=== PATIENT | female | born 1965 | race Caucasian/White ===

== ENCOUNTER → 2018-05-27 | Day surgery (SDC) | payer MEDICARE ==
--- NOTE | 2018-05-26 18:11 | Diagnostic Imaging Report ---
PROCEDURE: X-RAY CHEST, TWO VIEWS COMPARISON: Patients [facility], DX, CHEST 2 VIEWS, 04/05/2017, 16:24. INDICATIONS: pre-operative chest/foot surgery FINDINGS: LUNGS: Well-inflated. No consolidations or edema.Vascular markings are normal. PLEURA: No effusions or pneumothorax. Central eventration of the right diaphragm is stable. HEART \T\ MEDIASTINUM: The heart is within normal size-limits. BONES \T\ SOFT TISSUES: The bones are mildly demineralized. No focal osseous lesions. No acute findings. CONCLUSION: Stable chest. No active disease. Dictated by: Shae Timmons M.D. on 05/26/2018 at 18:16 Electronically approved by: Shae Timmons M.D. on 05/26/2018 at 18:16
[2018-05-26 18:15] LABS: BASOPHILS % 0.2 % (0.0-1.0); EOSINOPHILS # (AUTO) 0.2 (0.0-0.4); EOSINOPHILS % 1.4 % (0.0-6.0); HEMATOCRIT 36.8 % (34.2-44.1); LYMPHOCYTES # (AUTO) 1.7 (1.0-3.2); LYMPHOCYTES % 12.4 % (18.0-39.1); MEAN CORPUSCULAR HEMOGLOBIN 30.5 pg (28-32); MEAN CORPUSCULAR HGB CONC 32.6 g/dL (31-35); MEAN CORPUSCULAR VOLUME 93.4 fL (81-99); MONOCYTES # (AUTO) 0.5 (0.2-0.8); MONOCYTES % 3.4 % (4.4-11.3); NEUTROPHILS # (AUTO) 11.4 (2.1-6.9); NEUTROPHILS % 82.2 % (38.7-80.0); PLATELET COUNT 336 x10e3/uL (140-360); RED BLOOD COUNT 3.94 x10e6/uL (3.6-5.1)
[2018-05-26 18:24] LABS: ANION GAP 14.8 mmol/L (8-16); BLOOD UREA NITROGEN 13 mg/dL (7-26); BUN/CREATININE RATIO 17 (6-25); CALCIUM 9.5 mg/dL (8.4-10.2); CARBON DIOXIDE 26 mmol/L (22-29); CHLORIDE 106 mmol/L (98-107); CREATININE, SERUM 0.75 mg/dL (0.57-1.11); EST GLOMERULAR FILTRATION RATE > 60 ML/MIN (60-); GLUCOSE 98 mg/dL (74-118); POTASSIUM 4.8 mmol/L (3.5-5.1); SODIUM 142 mmol/L (136-145)
[~2018-05-27] MED LIST: ALTACE; ATORVASTATIN CA40 MG PO; AZITHROMYCIN250 MG PO; BACITRACIN 50,000 UNIT VIAL ONE; BUPIVACAINE HCL 0.5% INJ 30 ML VIAL INJ ONE; CEFAZOLIN SOD 2 GM/D5W 50ML 50 ML IV ONE; CLOPIDOGREL75 MG PO; DEXAMETHASONE SOD PHOS INJ 4 MG/ML VIAL ONE; ECOTRIN81 MG PO; FENTANYL CITRATE/PF 100MCG/2 ML INJ ONE; FLAGYL; GABAPENTIN300 MG PO; IBUPROFEN; IBUPROFEN400 MG PO; LIDOCAINE HCL 2% LOCAL INJ 5 ML SDV VIAL INJ ONE; LIDOCAINE HCL50 ML TOP; MIDAZOLAM HCL 2 MG/2 ML VIAL ONE; MORPHINE SULFATE 2 MG/ML SYR ONE; MUPIROCIN; NEOSTIGMINE 1 MG/ML 10ML VIAL ONE; NEXIUM; NEXIUM40 MG PO; NICOTINE PATCH1 EAC5 TD; NORCO 10-325 T1 EACH PO; ONDANSETRON HCL INJ 2 MG/ML VIAL ONE; PROAIR HFA INH8.5 GM INH; PROPOFOL IV EMULSION 10 MG/ML 20 ML VIAL ONE; SEVOFLURANE INHAL SOLN 250 ML PEN BTL ONE; TYLENOL; TYLENOL PO; ULTRAM50 MG PO; VASOPRESSIN INJ 20 UNIT/ML VIAL ONE; Z.0.ALTACE10 M1 PO; Z.0.CLINDAMYCIN HC30 PO; Z.0.NEXIUM40 MG PO; Z.0.NORCO 7.5-3251 E PO; Z.0.TRILEPTAL300 MG PO
--- NOTE | 2018-05-28 00:30 | Operative Report ---
DATE OF PROCEDURE: May 27, 2018 PREOPERATIVE DIAGNOSIS: Painful ulcerated lesions, plantar aspect, bilateral feet, left and right, the right foot sub first and fifth metatarsals and the left foot sub third metatarsal. POSTOPERATIVE DIAGNOSIS: Painful ulcerated lesions, plantar aspect, bilateral feet, left and right, the right foot sub first and fifth metatarsals and the left foot sub third metatarsal. TITLE OF THE OPERATION: Debridement of bilateral foot chronic ulcerations with application of human tissue autograft. ANESTHESIA: General endotracheal. HEMOSTASIS: None used. PROCEDURE IN DETAIL: The patient was taken to the operating room in a mildly sedated state and placed upon the operating room table in supine position. Following induction of general anesthetic, the left and right lower extremities were placed upon the operating table prior to performing the following procedure. The foot left and right having been prepped and draped in the usual aseptic manner utilizing Betadine prep. A #10 blade was used for debridement full-thickness through skin and subcutaneous tissue of the wounds which were deep and measured approximately 2 cm in circumference sub fifth, sub first, and sub third on the left foot. All wounds having been appropriately debrided and the base noted to have a thickened hyperkeratotic central core which was curetted. The areas were all irrigated and partial-thickness human tissue allograft was applied to all wounds. The areas were then blocked with 0.5 Marcaine. No tourniquets had been used, therefore the appropriate mildly compressive dressings were applied, and the patient left the operating room with vital signs stable and in apparent satisfactory condition, having tolerated both anesthetic and procedure very well. CECELIA GODFREY DPM Job#: [id number]
== END | disposition home or self-care (01) ==
LOC: OR 07:15
PROVIDERS: ATTEND Podiatrist Foot Surgery
DX: L97.421 Non-pressure chronic ulcer of left heel and midfoot limited to breakdown of skin (principal); L97.411 Non-pressure chronic ulcer of right heel and midfoot limited to breakdown of skin; L03.116 Cellulitis of left lower limb; L03.115 Cellulitis of right lower limb; Z98.62 Peripheral vascular angioplasty status; I73.9 Peripheral vascular disease, unspecified; G90.50 Complex regional pain syndrome I, unspecified; I25.10 Atherosclerotic heart disease of native coronary artery without angina pectoris; J44.9 Chronic obstructive pulmonary disease, unspecified; I10 Essential (primary) hypertension; F17.210 Nicotine dependence, cigarettes, uncomplicated; Z01.810 Encounter for preprocedural cardiovascular examination; Z01.812 Encounter for preprocedural laboratory examination; Z01.818 Encounter for other preprocedural examination; Z86.73 Personal history of transient ischemic attack (TIA), and cerebral infarction without residual deficits; I25.2 Old myocardial infarction; Z79.02 Long term (current) use of antithrombotics/antiplatelets; Z79.82 Long term (current) use of aspirin
CPT/HCPCS: 15275; 36415 ×2; 71046; 80048; 82948; 85025; 88305; 93005; J1100; J2001; J2250; J2270; J2405; J2710

== ENCOUNTER → 2018-12-16 | Day surgery (SDC) | payer MEDICARE ==
[2018-12-15 15:56] LABS: BASOPHILS % 0.3 % (0.0-1.0); EOSINOPHILS # (AUTO) 0.1 (0.0-0.4); EOSINOPHILS % 1.3 % (0.0-6.0); HEMATOCRIT 36.4 % (34.2-44.1); HEMOGLOBIN 12.1 g/dL (12.0-16.0); LYMPHOCYTES % 17.9 % (18.0-39.1); MEAN CORPUSCULAR HEMOGLOBIN 30.3 pg (28-32); MEAN CORPUSCULAR HGB CONC 33.2 g/dL (31-35); MONOCYTES # (AUTO) 0.3 (0.2-0.8); MONOCYTES % 3.1 % (4.4-11.3); NEUTROPHILS # (AUTO) 8.5 (2.1-6.9); NEUTROPHILS % 77.2 % (38.7-80.0); PLATELET COUNT 293 x10e3/uL (140-360); RED CELL DISTRIBUTION WIDTH 14.1 % (11.7-14.4)
[2018-12-15 16:19] LABS: ANION GAP 7.4 mmol/L (8-16); BLOOD UREA NITROGEN 10 mg/dL (7-26); BUN/CREATININE RATIO 14 (6-25); CALCIUM 9.3 mg/dL (8.4-10.2); CARBON DIOXIDE 21 mmol/L (22-29); CHLORIDE 107 mmol/L (98-107); CREATININE, SERUM 0.74 mg/dL (0.57-1.11); EST GLOMERULAR FILTRATION RATE > 60 ML/MIN (60-); GLUCOSE 96 mg/dL (74-118); POTASSIUM 3.4 mmol/L (3.5-5.1); SODIUM 132 mmol/L (136-145)
[~2018-12-16] MED LIST changes: +ACETAMINOPHEN 1000 MG/100 ML 100 ML IV ONE; -BACITRACIN 50,000 UNIT VIAL ONE; +BUPIVACAINE 0.25% 30ML SDV INJ ONE; -BUPIVACAINE HCL 0.5% INJ 30 ML VIAL INJ ONE; +HYDROMORPHONE 2MG/ML 2 MG/ML ML ONE; +KETAMINE HCL INJ 50 MG/ML 10 ML VIAL ONE; -MORPHINE SULFATE 2 MG/ML SYR ONE; -NEOSTIGMINE 1 MG/ML 10ML VIAL ONE; -ONDANSETRON HCL INJ 2 MG/ML VIAL ONE; -VASOPRESSIN INJ 20 UNIT/ML VIAL ONE
[2018-12-16 12:05] VITALS: BP 131/62
--- NOTE | 2018-12-21 13:33 | Operative Report ---
DATE OF PROCEDURE: 12/16/2018 SURGEON: Peter Apodaca DPM PREOPERATIVE DIAGNOSES: 1. 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 2. Plantar ulceration, plantar aspect of the left foot. POSTOPERATIVE DIAGNOSES: 1. 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 2. Plantar ulceration, plantar aspect of the left foot. OPERATIONS: 1. Wound debridement, full thickness through skin and subcutaneous tissue of lesions of 1st and 5th metatarsals of the right foot with application of human tissue allograft to the wound base. 2. Debridement of 4th digital ulceration on the right foot as well, full thickness through skin and subcutaneous tissue. 3. Amputation, 2nd digit on the right foot. 4. Full thickness debridement through skin and subcutaneous tissue lesion, plantar aspect of the left foot. ANESTHESIA: General endotracheal. HEMOSTASIS: None used. Supplemental anesthesia and additional blockade. The patient's right lower extremity was additionally blocked with 0.5 Marcaine and lidocaine to the area of the common peroneal nerve as well as the tibial nerve and sural nerve all on the right foot. PROCEDURE IN DETAIL: The patient was taken to the operating room placed on the operating table in supine position. Following induction of general anesthetic, the right lower extremity was prepped and draped in the usual aseptic manner, utilized Betadine prep. The nerve block to the common peroneal nerve and tibial nerve and sural nerve were all then accomplished utilizing 0.5 Marcaine approximately 40 mL in total. The procedures were then performed as listed below. Amputation of 2nd digit, right foot. Two converging semi-elliptical incisions in a hockey-stick shape were made overlying the 2nd digit of the right foot. This was taken down to the joint level and the digit was disarticulated. This digit was pregangrenous and contracted dorsally and unable to be straightened creating tremendous disability for this patient. The digit having thus been removed. The base of the wound was irrigated. Application of human tissue allograft to the deep tissues as well as the closure of 3-0 Vicryl and 4-0 Nylon were applied. This was a flowable graft in this case. Attention was then directed to the areas of significant lesion, plantar aspect of the 1st and 5th metatarsals of the right foot. Utilizing a #15 blade, a full thickness excisional debridement was performed of the hypertrophic and somewhat necrotic tissue underlying the 1st and 5th metatarsals of the right foot. These full thickness wound debridements were then to the appropriate level with wounds measuring greater than 4 cm each. The wound base itself was then covered with mesh graft of human tissue allograft, which was applied to that area. The wound base itself was noted to be adherent and the graft was fixated with steri-strip or staple as required. The area having thus been appropriately dressed and treated was covered with non-adhesive dressings and the patient tolerated both anesthetic and procedure very well. Estimated blood loss on that right side was approximately 10 mL of blood. Attention was then directed to the left foot, where an approximate 4 cm lesion was noted on the plantar aspect of the left foot. This foot having been prepped and draped, a #15 blade was used to excisionally debride the tissue from the plantar aspect of the left foot, which had been quite painful and thickened hyperkeratotic in nature. The wound base was fibrous after debridement. That area was then irrigated with copious amounts of sterile saline solution and the appropriate compressive dressings were applied. There was no tourniquet used on the left side and blood loss was approximately 5 mL. That area was then appropriately dressed and the patient was blocked with 0.5 Marcaine, Decadron-LA. The patient tolerated both anesthetic and procedure very well. There was a reflexive hyperemia noted to both feet after the Marcaine blocks indicating a reflexive hyperemia. The patient left the operating room with vital signs stable and in apparent satisfactory condition, tolerated both anesthetic and procedure very well. JONATHAN Delaney/CHRISTIANO /[id number]
== END | disposition home or self-care (01) ==
LOC: OR 08:38
PROVIDERS: ATTEND Podiatrist Foot Surgery
DX: M89.071 Algoneurodystrophy, right ankle and foot (principal); I96 Gangrene, not elsewhere classified; S91.104A Unspecified open wound of right lesser toe(s) without damage to nail, initial encounter; L97.428 Non-pressure chronic ulcer of left heel and midfoot with other specified severity; I73.9 Peripheral vascular disease, unspecified; I10 Essential (primary) hypertension; I25.2 Old myocardial infarction; I34.1 Nonrheumatic mitral (valve) prolapse; M06.9 Rheumatoid arthritis, unspecified; J43.9 Emphysema, unspecified; R00.1 Bradycardia, unspecified; F32.9 Major depressive disorder, single episode, unspecified; F41.9 Anxiety disorder, unspecified; F17.210 Nicotine dependence, cigarettes, uncomplicated; X58.XXXA Exposure to other specified factors, initial encounter; Z01.810 Encounter for preprocedural cardiovascular examination; Z01.812 Encounter for preprocedural laboratory examination; Z79.02 Long term (current) use of antithrombotics/antiplatelets; Z79.82 Long term (current) use of aspirin; Z86.73 Personal history of transient ischemic attack (TIA), and cerebral infarction without residual deficits
CPT/HCPCS: 11042; 28825; 36415; 80048; 85025; 88305; 88311; 93005; J0131; J0690; J1100; J1170; J2001; J2250; J2704; Q4100 ×2; 76000; 88302

== ENCOUNTER → 2019-05-12 | Day surgery (SDC) | payer MEDICARE ==
[2019-05-04 16:24] LABS: BASOPHILS % 0.4 % (0.0-1.0); EOSINOPHILS # (AUTO) 0.1 (0.0-0.4); EOSINOPHILS % 1.5 % (0.0-6.0); HEMATOCRIT 37.9 % (34.2-44.1); HEMOGLOBIN 12.4 g/dL (12.0-16.0); LYMPHOCYTES % 22.1 % (18.0-39.1); MEAN CORPUSCULAR HEMOGLOBIN 30.2 pg (28-32); MEAN CORPUSCULAR HGB CONC 32.7 g/dL (31-35); MEAN CORPUSCULAR VOLUME 92.2 fL (81-99); MONOCYTES # (AUTO) 0.5 (0.2-0.8); NEUTROPHILS # (AUTO) 6.4 (2.1-6.9); NEUTROPHILS % 70.6 % (38.7-80.0); PLATELET COUNT 304 x10e3/uL (140-360); RED BLOOD COUNT 4.11 x10e6/uL (3.6-5.1); RED CELL DISTRIBUTION WIDTH 12.7 % (11.7-14.4)
[2019-05-04 16:40] LABS: ANION GAP 13.9 mmol/L (8-16); BLOOD UREA NITROGEN 19 mg/dL (7-26); BUN/CREATININE RATIO 24 (6-25); CALCIUM 9.3 mg/dL (8.4-10.2); CARBON DIOXIDE 24 mmol/L (22-29); CHLORIDE 104 mmol/L (98-107); EST GLOMERULAR FILTRATION RATE > 60 ML/MIN (60-); GLUCOSE 97 mg/dL (74-118); POTASSIUM 3.9 mmol/L (3.5-5.1); SODIUM 138 mmol/L (136-145)
[~2019-05-12] MED LIST changes: -ACETAMINOPHEN 1000 MG/100 ML 100 ML IV ONE; -BUPIVACAINE 0.25% 30ML SDV INJ ONE; +BUPIVACAINE HCL 0.5% INJ 30 ML VIAL INJ ONE; +CEFAZOLIN SOD 1 GM/NS 50ML 100 ML IV ONE; -CEFAZOLIN SOD 2 GM/D5W 50ML 50 ML IV ONE; +HYDROMORPHONE 1MG/1ML INJ ONE; -HYDROMORPHONE 2MG/ML 2 MG/ML ML ONE; -KETAMINE HCL INJ 50 MG/ML 10 ML VIAL ONE; +MORPHINE SULFATE INJ 4 MG/ML INJ 1ML ONE; +NEOSTIGMINE 1 MG/ML 10ML VIAL ONE; +ONDANSETRON HCL INJ 2MG/ML 2ML 2 MG/ML VIAL ONE
[2019-05-12 15:00] VITALS: BP 126/70
--- NOTE | 2019-05-15 10:50 | Operative Report ---
DATE OF PROCEDURE: 05/12/2019 SURGEON: Peter Apodaca DPM PREOPERATIVE DIAGNOSES: 1. 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 2. Chronic wounds full thickness to left foot. POSTOPERATIVE DIAGNOSES: 1. 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 2. Chronic wounds full thickness to left foot. TITLE OF OPERATION: 1. Debridement of the wound on the right foot to bone with skin graft via [employer] AmnioCord. 2. Left foot debridement full thickness through skin and subcutaneous tissue with appropriate mildly compressive dressings. PROCEDURE IN DETAIL: The patient was taken to the operating room in a mildly sedated state and placed on the operating table in supine position. Following induction of general anesthetic, the left and right lower extremities were prepped and draped in usual aseptic manner utilizing Betadine prep. Attention was directed to the right foot for the procedure #1, debridement to bone with grafting. A full-thickness debridement was performed of large hyperkeratotic lesion on the plantar aspect of the 5th metatarsal. The bone was mildly prominent in that area. The wound itself was excised with two semi-elliptical incisions and the underlying tissue was identified, irrigated, evaluated, debrided and did go down to bone in that area. It was felt that human tissue allograft would be helpful in facilitating closure and coverage. Therefore, to cover the bone within the wound, an AmnioCord 3 x 5 graft was inserted. The area was appropriately adhered. Deep closure over the AmnioCord was with combination of 3-0 Vicryl and 4-0 nylon. The areas of surgery were then blocked with 0.5% Marcaine and Decadron LA. Attention was then directed to the remaining wounds on that foot all of which were debrided partial thickness without complication utilizing 15 blade. The left foot had excisional debridement of multiple wounds less than 20 sq cm. The total area was debrided full thickness through skin and subcutaneous tissue. The appropriate mildly compressive dressings were applied. No tourniquets were used. The patient was dressed in the usual aseptic manner and returned to the operating room without complication. JONATHAN Delaney/CHRISTIANO /[id number]
== END | disposition home or self-care (01) ==
LOC: OR 10:43
PROVIDERS: ATTEND Podiatrist Foot Surgery
DX: L97.512 Non-pressure chronic ulcer of other part of right foot with fat layer exposed (principal); L97.522 Non-pressure chronic ulcer of other part of left foot with fat layer exposed; M79.671 Pain in right foot; Z01.810 Encounter for preprocedural cardiovascular examination; Z01.812 Encounter for preprocedural laboratory examination; Z01.811 Encounter for preprocedural respiratory examination; J44.9 Chronic obstructive pulmonary disease, unspecified; I73.9 Peripheral vascular disease, unspecified; I25.2 Old myocardial infarction; I11.0 Hypertensive heart disease with heart failure; I50.9 Heart failure, unspecified
CPT/HCPCS: 11042; 15275; 36415; 80048; 85025; 93005; J0690; J1100; J1170; J2001; J2250; J2270; J2405; J2704; J2710; J3010; J3590; 76000

== ENCOUNTER → 2020-09-06 | Day surgery (SDC) | payer MEDICARE ==
[2020-09-03 16:00] LABS: BASOPHILS % 0.4 % (0.0-1.0); EOSINOPHILS # (AUTO) 0.2 (0.0-0.4); EOSINOPHILS % 1.9 % (0.0-6.0); HEMATOCRIT 37.8 % (34.2-44.1); HEMOGLOBIN 12.2 g/dL (12.0-16.0); LYMPHOCYTES # (AUTO) 2.2 (1.0-3.2); LYMPHOCYTES % 26.5 % (18.0-39.1); MEAN CORPUSCULAR HGB CONC 32.3 g/dL (31-35); MEAN CORPUSCULAR VOLUME 92.9 fL (81-99); MONOCYTES # (AUTO) 0.4 (0.2-0.8); MONOCYTES % 4.7 % (4.4-11.3); NEUTROPHILS # (AUTO) 5.5 (2.1-6.9); NEUTROPHILS % 66.1 % (38.7-80.0); PLATELET COUNT 334 x10e3/uL (140-360); RED BLOOD COUNT 4.07 x10e6/uL (3.6-5.1); RED CELL DISTRIBUTION WIDTH 13.1 % (11.7-14.4)
[2020-09-03 16:20] LABS: ANION GAP 14.2 mmol/L (8-16); BLOOD UREA NITROGEN 16 mg/dL (7-26); BUN/CREATININE RATIO 21 (6-25); CALCIUM 9.1 mg/dL (8.4-10.2); CARBON DIOXIDE 21 mmol/L (22-29); CHLORIDE 106 mmol/L (98-107); CREATININE, SERUM 0.76 mg/dL (0.57-1.11); EST GLOMERULAR FILTRATION RATE > 60 ML/MIN (60-); GLUCOSE 98 mg/dL (74-118); POTASSIUM 4.2 mmol/L (3.5-5.1); SODIUM 137 mmol/L (136-145)
[~2020-09-06] MED LIST changes: +AZITHROMYCIN500 MG PO; +CEFAZOLIN SOD 1 GM VIAL ONE; -CEFAZOLIN SOD 1 GM/NS 50ML 100 ML IV ONE; +HYDROCODONE/APAP 10MG-325MG TAB ONE; -HYDROMORPHONE 1MG/1ML INJ ONE; -MORPHINE SULFATE INJ 4 MG/ML INJ 1ML ONE
[2020-09-06 09:40] VITALS: BP 146/88
== END | disposition home or self-care (01) ==
LOC: OR 05:42
PROVIDERS: ATTEND Podiatrist Foot Surgery
DX: L89.899 Pressure ulcer of other site, unspecified stage (principal); G90.523 Complex regional pain syndrome I of lower limb, bilateral; I25.10 Atherosclerotic heart disease of native coronary artery without angina pectoris; I10 Essential (primary) hypertension; J44.9 Chronic obstructive pulmonary disease, unspecified; R56.9 Unspecified convulsions; I25.2 Old myocardial infarction; I34.1 Nonrheumatic mitral (valve) prolapse; K21.9 Gastro-esophageal reflux disease without esophagitis; K58.9 Irritable bowel syndrome, unspecified; K44.9 Diaphragmatic hernia without obstruction or gangrene; R00.1 Bradycardia, unspecified; F41.9 Anxiety disorder, unspecified; F17.210 Nicotine dependence, cigarettes, uncomplicated; Z01.810 Encounter for preprocedural cardiovascular examination; Z01.812 Encounter for preprocedural laboratory examination; Z01.818 Encounter for other preprocedural examination; Z20.828 Contact with and (suspected) exposure to other viral communicable diseases; Z79.82 Long term (current) use of aspirin; Z79.02 Long term (current) use of antithrombotics/antiplatelets; Z86.73 Personal history of transient ischemic attack (TIA), and cerebral infarction without residual deficits
CPT/HCPCS: 11044; 36415; 71046; 80048; 85025; 93005; J0690; J1100; J2001; J2250; J2405; J2704; J2710; J3010; Q4186; U0002

== ENCOUNTER → 2021-04-11 | Day surgery (SDC) | payer MEDICARE ==
[2021-04-08 13:18] LABS: BASOPHILS # (AUTO) 0.1 (0.0-0.1); BASOPHILS % 0.4 % (0.0-1.0); EOSINOPHILS # (AUTO) 0.2 (0.0-0.4); EOSINOPHILS % 1.1 % (0.0-6.0); HEMATOCRIT 39.6 % (34.2-44.1); HEMOGLOBIN 12.9 g/dL (12.0-16.0); LYMPHOCYTES # (AUTO) 3.1 (1.0-3.2); LYMPHOCYTES % 22.2 % (18.0-39.1); MEAN CORPUSCULAR HEMOGLOBIN 30.2 pg (28-32); MEAN CORPUSCULAR HGB CONC 32.6 g/dL (31-35); MEAN CORPUSCULAR VOLUME 92.7 fL (81-99); MONOCYTES # (AUTO) 0.9 (0.2-0.8); MONOCYTES % 6.9 % (4.4-11.3); NEUTROPHILS # (AUTO) 9.5 (2.1-6.9); NEUTROPHILS % 68.9 % (38.7-80.0); PLATELET COUNT 330 x10e3/uL (140-360); RED BLOOD COUNT 4.27 x10e6/uL (3.6-5.1); RED CELL DISTRIBUTION WIDTH 13.5 % (11.7-14.4)
[2021-04-08 13:35] LABS: ANION GAP 15.9 mmol/L (8-16); CALCIUM 8.7 mg/dL (8.4-10.2); CREATININE, SERUM 1.04 mg/dL (0.57-1.11); POTASSIUM 3.9 mmol/L (3.5-5.1)
[~2021-04-11] MED LIST changes: -CEFAZOLIN SOD 1 GM VIAL ONE; -HYDROCODONE/APAP 10MG-325MG TAB ONE; +IBUPROFEN800 MG PO; +LIDOCAINE 2%/ EPINEPHRINE 20ML MDV ONE; +POVIDONE IODINE 0.05% 0.05 % ML PO ONE; +PREDNISONE20 MG PO; +ROPIVACAINE 0.5% 5 MG/ML 30 ML SDV ONE; +Z PAK PO
[2021-04-11 12:00] VITALS: BP 164/88
== END | disposition home or self-care (01) ==
LOC: OR 07:29
PROVIDERS: ATTEND Podiatrist Foot Surgery
DX: L89.891 Pressure ulcer of other site, stage 1 (principal); M79.671 Pain in right foot; Z01.810 Encounter for preprocedural cardiovascular examination; Z01.812 Encounter for preprocedural laboratory examination; J44.9 Chronic obstructive pulmonary disease, unspecified; Z20.822 Contact with and (suspected) exposure to COVID-19
CPT/HCPCS: 15004; 15275; 36415; 80048; 85025; 93005; J1100; J2001 ×2; J2250; J2405; J2704; J2710; J2795; J3010; U0002; V2790